=== PATIENT | male | born 1945 | race Caucasian/White ===

== ENCOUNTER 2020-10-22 07:44 | Emergency (ER) | payer OTHER, MEDICARE ==
[2020-10-22] MEDS ORDERED: Lidocaine 1% with EPINEPHrine 1:100,000 20 ML MDV INFILT STA (07:50)
--- NOTE | 2020-10-22 07:55 | EDM.PDOC ---
ED HPI GENERAL MEDICAL PROBLEM - General Stated Complaint: HEAD INJURY Time Seen by Provider: 10/22/20 07:45 Source of Information: Reports: Patient History Limitations: Reports: No Limitations - History of Present Illness INITIAL COMMENTS - FREE TEXT/NARRATIVE: Pt comes to the emergency department today with complaints of a fall and laceration to his scalp. Just prior to arrival the patient was walking on the sidewalk when he slipped on the ice while he was at work shoveling snow. Fell backwards on the ice. Striking the back of his head and sustaining a laceration. He did not loose consciousness. No headache, visual acuity changes. No vertigo or dizziness. NO neck pain. No nausea no vomiting. He is able to ambulate without difficulty. No paraesthesias of his upper or lower extremities. No castro ge in functionality of his upper or lower extremities. He had no symptoms prior to the mechanical fall. No nausea no vomiting. No confusion or change in mentation. Unsure of when his last tetanus shot was. No COVID exposure no COVID symptoms. He is on a baby aspirin daily but no anti-coagulation medications. ED ROS GENERAL - Review of Systems Review Of Systems: Comprehensive ROS is negative, except as noted in HPI. ED EXAM, HEAD INJURY - Physical Exam Exam: See Below Exam Limited By: No Limitations General Appearance: Alert, WD/WN, No Apparent Distress Head: Normocephalic, Scalp Lacerations (On the occiput there is a small area about the size of a quarter of a small hematoma. No crepitus or bony deformity. There is also two vertical superficial lacerations both about 1.2 cm in length paralell to each other on the scalp that are not bleeding. The rest of the scalp is atraumatic. ) Nexus Criteria: No: Posterior, Midline Cervical Tenderness, Evidence of In toxication, Altered Level of Consciousness, Focal Neurological Deficit, Painful Distraction Injuries Eyes: Bilateral Eye: EOMI, Normal Inspection, PERRL (2) Ears: Normal External Exam, Normal Canal, Hearing Grossly Normal, Normal TMs Nose: Normal Inspection, Normal Mucousa, No Blood Throat/Mouth: Normal Inspection, Normal Lips, Normal Teeth, Normal Gums, Normal Oropharynx, Normal Voice, No Airway Compromise Neck: Non-Tender, Full Range of Motion, Normal Alignment, Normal Inspection Respiratory: No Respiratory Distress Cardiovascular: Normal Peripheral Pulses, Regular Rate, Rhythm Back Exam: Normal Inspection, Full Range of Motion. No: Paraspinal Tenderness, Vertebral Tenderness Extremities: Normal Inspection, Normal Range of Motion, Non-Tender, No Pedal Edema, Normal Capillary Refill Neurologic: sand cutter II-XII nml As Tested, No Motor/Sensory Deficits, Alert, Normal Mood/Affect, Oriented x 3 - Jennifer Coma Score Best Eye Response ([place]): (4) Open Spontaneously Best Verbal Response ([place]): (5) Oriented Best Motor Response ([place]): (6) Obeys Commands ED LACERATION/WOUND & MATT PROC - Laceration/Wound Repair Posterior Head Lac/wound length in cm: 1.5 (x2) Appearance: Superficial, Stellate, Clean Distal NVT: Neuro & Vascular Intact Anesthetic Type: Local Local Anesthesia - Lidocaine (Xylocaine): 1% with EPI Skin Prep: Chlorhexidine (Hibiciens), Saline Exploration/Debridement/Repair: Wound Explored, In a Bloodless Field Closed with: [place] # of Sutures: 7 (5 on the right lac and 2 on the left. ) Tetanus Status Addressed: Yes Course - Orders/Labs/Meds Meds: Medications Discontinued Medications Generic Name Dose Route Start Last Admin Trade Name Gurpreet PRN Reason Stop Dose Admin Lidocaine/Epinephrine 20 ml 10/22/20 07:50 Xylocaine 1% With Epinephrine 1:100,000 INFILT 10/22/20 07:51 ONETIME STA - Re-Assessments/Exams Free Text/Narrative Re-Assessment/Exam: 10/22/20 08:07 The wound was cleanse and repaired as per the procedure note. It is more stellate in nature than initially thought. But was able to be easily closed with kaitlynn. His did not Loose consciousness and is not on an anticoagulant. No headache or other neurological complaints or symptoms. No CT at this time. Although if he develops any neurological symptoms especially headache nausea or vomiting he should recheck immediately in the ED. He is understanding of this and his questions answered. Departure - Departure Time of Disposition: 08:09 Disposition: Home, Self-Care 01 Clinical Impression: Scalp hematoma Qualifiers: Encounter type: initial encounter Qualified Code(s): S00.03XA - Contusion of scalp, initial encounter Laceration of scalp Qualifiers: Encounter type: initial encounter Qualified Code(s): S01.01XA - Laceration without foreign body of scalp, initial encounter - Discharge Information Instructions: Facial or Scalp Contusion, [id number], Sutures, [place], or Adhesive Wound Closure, [id number], How to Use Cold Therapy Additional Instructions: Ice to the scalp to help with swelling and pain. Enfield out in 5 days in the clinic. Okay to shower. Running water over is fine no soaking in the water. Wash twice daily with soap and water. Bacitracin until healed. Watch for signs of infection. Return to the ED if new or worsening symptoms especially any nausea vomiting headache confusion or other neurological changes or concerns. Follow up in the clinic in 5 days for staple removal.
[2020-10-22] MEDS ORDERED: Diphtheria,Pertussis(Acell),Tetanus Vaccine 0.5 ML Syringe IM ONE (08:07)
== END 2020-10-22 08:34 | disposition home or self-care (01) ==
LOC: VM.ED 07:44
DX: S01.01XA Laceration without foreign body of scalp, initial encounter (principal); Z23 Encounter for immunization; W00.0XXA Fall on same level due to ice and snow, initial encounter; Y99.0 Civilian activity done for income or pay
CPT/HCPCS: 12001; 12002; 90471; 90715; 99282-25; 99283

== ENCOUNTER 2023-10-31 00:15 | Emergency (ER) | payer MEDICARE ==
[2023-10-31] MEDS ORDERED: Ketorolac 30 MG/ML SDV IM ONE (00:32)
[2023-10-31] MEDS ORDERED: Take Home: traMADol 50 MG, 4 Tab Pack PO ONE (00:53)
== END 2023-10-31 01:20 | disposition home or self-care (01) ==
LOC: VM.ED 00:15
DX: M25.552 Pain in left hip (principal); I25.10 Atherosclerotic heart disease of native coronary artery without angina pectoris; I13.0 Hypertensive heart and chronic kidney disease with heart failure and stage 1 through stage 4 chronic kidney disease, or unspecified chronic kidney disease; E11.22 Type 2 diabetes mellitus with diabetic chronic kidney disease; N18.32 Chronic kidney disease, stage 3b; I50.9 Heart failure, unspecified; E66.9 Obesity, unspecified; Z88.8 Allergy status to other drugs, medicaments and biological substances; Z79.899 Other long term (current) drug therapy; Z88.7 Allergy status to serum and vaccine; Z79.82 Long term (current) use of aspirin
CPT/HCPCS: 96372; 99283; A9270-GY; J1885

== ENCOUNTER 2025-03-27 16:06 | Inpatient (IN) | payer MEDICARE ==
[2025-03-27 16:34] LABS: BASOPHILS ABSOLUTE AUTO 0.0 x10^3/uL (0.0-0.2); BASOPHILS PERCENT AUTO 0.3 % (0.2-1.2); EOSINOPHILS ABSOLUTE AUTO 0.1 x10^3/uL (0.0-0.5); EOSINOPHILS PERCENT AUTO 1.5 % (0.0-4.0); IMMATURE GRAN ABSOLUTE AUTO 0.01 x10^3/uL (0.00-0.07); IMMATURE GRAN PERCENT AUTO 0.10 % (0.00-0.43); LYMPHOCYTES ABSOLUTE AUTO 0.7 x10^3/uL (1.0-4.8); LYMPHOCYTES PERCENT AUTO 10.4 % (25.0-50.0); MONOCYTES ABSOLUTE AUTO 0.5 x10^3/uL (0.0-0.8); MONOCYTES PERCENT AUTO 7.3 % (2.0-11.0); NEUTROPHILS ABSOLUTE AUTO 5.7 x10^3/uL (1.8-7.7); NEUTROPHILS PERCENT AUTO 80.4 % (50.0-80.0); PLATELET COUNT,PLT 204 x10^3/uL (130-400); RED BLOOD CELL COUNT 3.72 x10^6/uL (4.5-6.0); WHITE BLOOD CELL COUNT,WBC 7.1 x10^3/uL (4.0-10.0)
[2025-03-27 16:57] LABS: A/G RATIO 0.91; ALANINE AMINOTRANSFERASE,ALT 7 U/L (16-63); ASPARTATE AMNIOTRANSFERASE,AST 12 U/L (15-37); BILIRUBIN TOTAL 0.5 mg/dL (0.2-1.0); BLOOD UREA NITROGEN,BUN 47 mg/dL (7-18); CARBON DIOXIDE,CO2 28 mmol/L (21-32); CHLORIDE,CL 106 mmol/L (98-107); CREATININE 2.2 mg/dL (0.70-1.30); ESTIMATED GFR 30 mL/min (>=60); GLUCOSE RANDOM 161 mg/dL (70-99); POTASSIUM,K 4.5 mmol/L (3.5-5.1); PRO B-TYPE NATRIUR PEPT,BNPPRO 9599 pg/mL (<=450); PROTEIN TOTAL,TP 6.5 g/dL (6.4-8.2); SODIUM,NA 142 mmol/L (136-145)
[2025-03-27] MEDS ORDERED: Non-Formulary Medication 1 Each (Epinephrine [Epinephrine] 0.3 MG/0.3 ML Auto.Injct) IM PRN (18:50)
[2025-03-27] MEDS ORDERED: Nitroglycerin 0.4 MG Tab.SL SL PRN (18:50)
[2025-03-27] MEDS: Heparin Sodium 5,000 Units/ML Vial SUBCUT SCH (19:13)
[2025-03-27] MEDS: Furosemide 40 MG/4 ML VIAL IV SCH (19:35)
[2025-03-27] MEDS: Arformoterol 15 MCG/2 ML Neb Soln NEB SCH (21:08)
[2025-03-27] MEDS: Budesonide 0.5 MG/2 ML Neb Susp NEB SCH (21:08)
[2025-03-28 06:55] LABS: BASOPHILS ABSOLUTE AUTO 0.0 x10^3/uL (0.0-0.2); BASOPHILS PERCENT AUTO 0.4 % (0.2-1.2); EOSINOPHILS ABSOLUTE AUTO 0.2 x10^3/uL (0.0-0.5); EOSINOPHILS PERCENT AUTO 2.4 % (0.0-4.0); IMMATURE GRAN ABSOLUTE AUTO 0.01 x10^3/uL (0.00-0.07); IMMATURE GRAN PERCENT AUTO 0.10 % (0.00-0.43); LYMPHOCYTES ABSOLUTE AUTO 1.1 x10^3/uL (1.0-4.8); LYMPHOCYTES PERCENT AUTO 16.6 % (25.0-50.0); MONOCYTES ABSOLUTE AUTO 0.7 x10^3/uL (0.0-0.8); MONOCYTES PERCENT AUTO 10.9 % (2.0-11.0); NEUTROPHILS ABSOLUTE AUTO 4.7 x10^3/uL (1.8-7.7); NEUTROPHILS PERCENT AUTO 69.6 % (50.0-80.0); PLATELET COUNT,PLT 219 x10^3/uL (130-400); RED BLOOD CELL COUNT 3.85 x10^6/uL (4.5-6.0); WHITE BLOOD CELL COUNT,WBC 6.7 x10^3/uL (4.0-10.0)
[2025-03-28 07:00] LABS: BLOOD UREA NITROGEN,BUN 43.0 mg/dL (7-18); CARBON DIOXIDE,CO2 31.0 mmol/L (21-32); CHLORIDE,CL 105.0 mmol/L (98-107); CREATININE 2.0 mg/dL (0.70-1.30); EST CRCL DRUG DOSING (CG) 31.38 mL/min; GLUCOSE RANDOM 96.0 mg/dL (70-99); POTASSIUM,K 4.3 mmol/L (3.5-5.1); SODIUM,NA 144.0 mmol/L (136-145)
[2025-03-28 07:02] LABS: ESTIMATED GFR 33.0 mL/min (>=60)
[2025-03-28] MEDS ORDERED: EPINEPHrine 1 MG/ML SDV IM PRN (08:27)
[2025-03-28] MEDS ORDERED: Non-Formulary Medication 1 Each (Atorvastatin [Lipitor] 20 MG Tablet) PO SCH (09:00)
[2025-03-28] MEDS: Cholecalciferol (Vitamin D3) 25 MCG Tab PO SCH (09:01)
[2025-03-29 06:48] LABS: BASOPHILS ABSOLUTE AUTO 0.0 x10^3/uL (0.0-0.2); BASOPHILS PERCENT AUTO 0.4 % (0.2-1.2); EOSINOPHILS ABSOLUTE AUTO 0.0 x10^3/uL (0.0-0.5); EOSINOPHILS PERCENT AUTO 0.0 % (0.0-4.0); IMMATURE GRAN ABSOLUTE AUTO 0.01 x10^3/uL (0.00-0.07); IMMATURE GRAN PERCENT AUTO 0.20 % (0.00-0.43); LYMPHOCYTES ABSOLUTE AUTO 0.5 x10^3/uL (1.0-4.8); LYMPHOCYTES PERCENT AUTO 10.6 % (25.0-50.0); MONOCYTES ABSOLUTE AUTO 0.3 x10^3/uL (0.0-0.8); MONOCYTES PERCENT AUTO 6.6 % (2.0-11.0); NEUTROPHILS ABSOLUTE AUTO 3.7 x10^3/uL (1.8-7.7); NEUTROPHILS PERCENT AUTO 82.2 % (50.0-80.0); PLATELET COUNT,PLT 178 x10^3/uL (130-400); RED BLOOD CELL COUNT 3.49 x10^6/uL (4.5-6.0)
[2025-03-29 06:58] LABS: WHITE BLOOD CELL COUNT,WBC 4.5 x10^3/uL (4.0-10.0)
[2025-03-29 07:17] LABS: BLOOD UREA NITROGEN,BUN 42.0 mg/dL (7-18); CARBON DIOXIDE,CO2 31.0 mmol/L (21-32); CHLORIDE,CL 103.0 mmol/L (98-107); CREATININE 2.0 mg/dL (0.70-1.30); EST CRCL DRUG DOSING (CG) 31.38 mL/min; GLUCOSE RANDOM 136.0 mg/dL (70-99); POTASSIUM,K 4.0 mmol/L (3.5-5.1); PRO B-TYPE NATRIUR PEPT,BNPPRO 9019.0 pg/mL (<=450); SODIUM,NA 141.0 mmol/L (136-145)
[2025-03-29 07:20] LABS: ESTIMATED GFR 33.0 mL/min (>=60)
[2025-03-29] MEDS: methylPREDNISolone Sodium Succinate 125 MG/2 ML SDV IVPUSH SCH (08:46)
[2025-03-29] MEDS: Furosemide 40 MG/4 ML VIAL IV ONE ×2 (10:55→22:32)
[2025-03-30] MEDS: methylPREDNISolone Sodium Succinate 125 MG/2 ML SDV IVPUSH SCH ×2 (00:01→20:21)
[2025-03-30 07:05] LABS: BASOPHILS ABSOLUTE AUTO 0.0 x10^3/uL (0.0-0.2); BASOPHILS PERCENT AUTO 0.2 % (0.2-1.2); EOSINOPHILS ABSOLUTE AUTO 0.0 x10^3/uL (0.0-0.5); EOSINOPHILS PERCENT AUTO 0.0 % (0.0-4.0); IMMATURE GRAN ABSOLUTE AUTO 0.01 x10^3/uL (0.00-0.07); IMMATURE GRAN PERCENT AUTO 0.20 % (0.00-0.43); LYMPHOCYTES ABSOLUTE AUTO 0.3 x10^3/uL (1.0-4.8); LYMPHOCYTES PERCENT AUTO 5.0 % (25.0-50.0); MONOCYTES ABSOLUTE AUTO 0.1 x10^3/uL (0.0-0.8); MONOCYTES PERCENT AUTO 1.6 % (2.0-11.0); NEUTROPHILS ABSOLUTE AUTO 6.0 x10^3/uL (1.8-7.7); NEUTROPHILS PERCENT AUTO 93.0 % (50.0-80.0); PLATELET COUNT,PLT 191 x10^3/uL (130-400); RED BLOOD CELL COUNT 3.46 x10^6/uL (4.5-6.0); WHITE BLOOD CELL COUNT,WBC 6.4 x10^3/uL (4.0-10.0)
[2025-03-30 07:21] LABS: A/G RATIO 0.94; ALANINE AMINOTRANSFERASE,ALT 10.0 U/L (16-63); ASPARTATE AMNIOTRANSFERASE,AST 10.0 U/L (15-37); BILIRUBIN TOTAL 0.4 mg/dL (0.2-1.0); BLOOD UREA NITROGEN,BUN 49.0 mg/dL (7-18); CARBON DIOXIDE,CO2 30.0 mmol/L (21-32); CHLORIDE,CL 102.0 mmol/L (98-107); CREATININE 2.0 mg/dL (0.70-1.30); EST CRCL DRUG DOSING (CG) 31.38 mL/min; GLUCOSE RANDOM 185.0 mg/dL (70-99); POTASSIUM,K 4.2 mmol/L (3.5-5.1); PRO B-TYPE NATRIUR PEPT,BNPPRO 11513.0 pg/mL (<=450); PROTEIN TOTAL,TP 6.4 g/dL (6.4-8.2); SODIUM,NA 141.0 mmol/L (136-145)
[2025-03-30 07:22] LABS: ESTIMATED GFR 33.0 mL/min (>=60)
[2025-03-30 08:42] LABS: BASE EXCESS ARTERIAL,POC 4 mmol/L ((-2)-3); HCO3 ARTERIAL,POC 29.7 mmol/L (21-28); O2 SATURATION ARTERIAL,POC 91.4 % (94-98); PCO2 ARTERIAL,POC 52 mmHg (35-48); PH ARTERIAL,POC 7.37 pH (7.35-7.45); PO2 ARTERIAL,POC 65 mmHg (83-108); TCO2 ARTERIAL,POC 28.5 mmol/L (22-29)
[2025-03-30] MEDS: Furosemide 40 MG/4 ML VIAL IV SCH ×2 (10:55→15:28)
[2025-03-30] MEDS: Furosemide 100 MG/10 ML SDV IV SCH (17:08)
[2025-03-31 07:54] LABS: BASOPHILS ABSOLUTE AUTO 0.0 x10^3/uL (0.0-0.2); BASOPHILS PERCENT AUTO 0.1 % (0.2-1.2); EOSINOPHILS ABSOLUTE AUTO 0.0 x10^3/uL (0.0-0.5); EOSINOPHILS PERCENT AUTO 0.0 % (0.0-4.0); IMMATURE GRAN ABSOLUTE AUTO 0.03 x10^3/uL (0.00-0.07); IMMATURE GRAN PERCENT AUTO 0.30 % (0.00-0.43); LYMPHOCYTES ABSOLUTE AUTO 0.3 x10^3/uL (1.0-4.8); LYMPHOCYTES PERCENT AUTO 3.0 % (25.0-50.0); MONOCYTES ABSOLUTE AUTO 0.3 x10^3/uL (0.0-0.8); MONOCYTES PERCENT AUTO 3.2 % (2.0-11.0); NEUTROPHILS ABSOLUTE AUTO 9.5 x10^3/uL (1.8-7.7); NEUTROPHILS PERCENT AUTO 93.4 % (50.0-80.0); PLATELET COUNT,PLT 185 x10^3/uL (130-400); RED BLOOD CELL COUNT 3.85 x10^6/uL (4.5-6.0)
[2025-03-31 08:06] LABS: WHITE BLOOD CELL COUNT,WBC 10.2 x10^3/uL (4.0-10.0)
[2025-03-31 08:19] LABS: A/G RATIO 1.00; ALANINE AMINOTRANSFERASE,ALT 10 U/L (16-63); ASPARTATE AMNIOTRANSFERASE,AST 10 U/L (15-37); BILIRUBIN TOTAL 0.4 mg/dL (0.2-1.0); BLOOD UREA NITROGEN,BUN 63 mg/dL (7-18); CARBON DIOXIDE,CO2 32 mmol/L (21-32); CHLORIDE,CL 101 mmol/L (98-107); CREATININE 2.1 mg/dL (0.70-1.30); EST CRCL DRUG DOSING (CG) 29.88 mL/min; GLUCOSE RANDOM 216 mg/dL (70-99); POTASSIUM,K 3.6 mmol/L (3.5-5.1); PRO B-TYPE NATRIUR PEPT,BNPPRO 11947 pg/mL (<=450); PROTEIN TOTAL,TP 6.2 g/dL (6.4-8.2); SODIUM,NA 140 mmol/L (136-145)
[2025-03-31 08:25] LABS: ESTIMATED GFR 31 mL/min (>=60)
[2025-03-31] MEDS: Bumetanide 2.5 MG/10 ML MDV IVPUSH ONE ×2 (09:58→21:31)
[2025-03-31] MEDS: methylPREDNISolone Sodium Succinate 40 MG/1 ML SDV IVPUSH SCH (09:58)
[2025-03-31] MEDS: Potassium Chloride 10 MEQ Tab.ER PO SCH (18:04)
[2025-04-01 08:19] LABS: PLATELET COUNT,PLT 168.0 x10^3/uL (130-400); RED BLOOD CELL COUNT 3.71 x10^6/uL (4.5-6.0); WHITE BLOOD CELL COUNT,WBC 8.3 x10^3/uL (4.0-10.0)
[2025-04-01 08:39] LABS: A/G RATIO 1.03; ALANINE AMINOTRANSFERASE,ALT 15.0 U/L (16-63); ASPARTATE AMNIOTRANSFERASE,AST 11.0 U/L (15-37); BILIRUBIN TOTAL 0.4 mg/dL (0.2-1.0); CARBON DIOXIDE,CO2 33.0 mmol/L (21-32); CHLORIDE,CL 101.0 mmol/L (98-107); CREATININE 2.0 mg/dL (0.70-1.30); EST CRCL DRUG DOSING (CG) 31.38 mL/min; GLUCOSE RANDOM 265.0 mg/dL (70-99); POTASSIUM,K 4.1 mmol/L (3.5-5.1); PROTEIN TOTAL,TP 5.9 g/dL (6.4-8.2); SODIUM,NA 140.0 mmol/L (136-145)
[2025-04-01 08:40] LABS: BLOOD UREA NITROGEN,BUN 75.0 mg/dL (7-18); ESTIMATED GFR 33.0 mL/min (>=60)
[2025-04-01] MEDS: Bumetanide 2.5 MG/10 ML MDV IVPUSH SCH (08:42)
[2025-04-01 14:43] LABS: BASE EXCESS ARTERIAL,POC 4 mmol/L ((-2)-3); HCO3 ARTERIAL,POC 29.0 mmol/L (21-28); O2 SATURATION ARTERIAL,POC 84.8 % (94-98); PCO2 ARTERIAL,POC 46 mmHg (35-48); PH ARTERIAL,POC 7.40 pH (7.35-7.45); TCO2 ARTERIAL,POC 27.7 mmol/L (22-29)
[2025-04-01 14:45] LABS: PO2 ARTERIAL,POC 50 mmHg (83-108)
[2025-04-01] MEDS: Lidocaine 2% HCl 11 ML Jelly Filled Syringe MUCMEM ONE (14:52)
[2025-04-01] MEDS ORDERED: 50% Dextrose in Water 50 ML Syringe IVPUSH PRN (20:43)
[2025-04-01] MEDS: Insulin Regular, Human 100 Units/ML 10 ML Vial SUBCUT SCH (21:27)
[2025-04-02 06:46] LABS: PLATELET COUNT,PLT 164.0 x10^3/uL (130-400); RED BLOOD CELL COUNT 3.94 x10^6/uL (4.5-6.0); WHITE BLOOD CELL COUNT,WBC 8.2 x10^3/uL (4.0-10.0)
[2025-04-02 07:06] LABS: A/G RATIO 1.07; ALANINE AMINOTRANSFERASE,ALT 23.0 U/L (16-63); ASPARTATE AMNIOTRANSFERASE,AST 13.0 U/L (15-37); BILIRUBIN TOTAL 0.5 mg/dL (0.2-1.0); CARBON DIOXIDE,CO2 36.0 mmol/L (21-32); CHLORIDE,CL 102.0 mmol/L (98-107); CREATININE 2.0 mg/dL (0.70-1.30); EST CRCL DRUG DOSING (CG) 31.38 mL/min; ESTIMATED GFR 33.0 mL/min (>=60); GLUCOSE RANDOM 279.0 mg/dL (70-99); POTASSIUM,K 4.0 mmol/L (3.5-5.1); PROTEIN TOTAL,TP 6.0 g/dL (6.4-8.2); SODIUM,NA 142.0 mmol/L (136-145)
[2025-04-02 07:07] LABS: BLOOD UREA NITROGEN,BUN 77.0 mg/dL (7-18)
[2025-04-02] MEDS: Bumetanide 2.5 MG/10 ML MDV IVPUSH SCH (08:48)
[2025-04-03 06:57] LABS: BASOPHILS ABSOLUTE AUTO 0.0 x10^3/uL (0.0-0.2); BASOPHILS PERCENT AUTO 0.1 % (0.2-1.2); EOSINOPHILS ABSOLUTE AUTO 0.0 x10^3/uL (0.0-0.5); EOSINOPHILS PERCENT AUTO 0.0 % (0.0-4.0); IMMATURE GRAN ABSOLUTE AUTO 0.04 x10^3/uL (0.00-0.07); IMMATURE GRAN PERCENT AUTO 0.50 % (0.00-0.43); LYMPHOCYTES ABSOLUTE AUTO 0.2 x10^3/uL (1.0-4.8); MONOCYTES ABSOLUTE AUTO 0.3 x10^3/uL (0.0-0.8); MONOCYTES PERCENT AUTO 3.7 % (2.0-11.0); NEUTROPHILS ABSOLUTE AUTO 7.3 x10^3/uL (1.8-7.7); NEUTROPHILS PERCENT AUTO 92.9 % (50.0-80.0); PLATELET COUNT,PLT 150 x10^3/uL (130-400); RED BLOOD CELL COUNT 3.98 x10^6/uL (4.5-6.0); WHITE BLOOD CELL COUNT,WBC 7.8 x10^3/uL (4.0-10.0)
[2025-04-03 07:11] LABS: LYMPHOCYTES PERCENT AUTO 2.8 % (25.0-50.0)
[2025-04-03 07:24] LABS: A/G RATIO 1.15; ALANINE AMINOTRANSFERASE,ALT 29.0 U/L (16-63); ASPARTATE AMNIOTRANSFERASE,AST 17.0 U/L (15-37); BILIRUBIN TOTAL 0.6 mg/dL (0.2-1.0); CARBON DIOXIDE,CO2 35.0 mmol/L (21-32); CHLORIDE,CL 100.0 mmol/L (98-107); CREATININE 1.9 mg/dL (0.70-1.30); EST CRCL DRUG DOSING (CG) 33.03 mL/min; GLUCOSE RANDOM 236.0 mg/dL (70-99); POTASSIUM,K 4.3 mmol/L (3.5-5.1); PRO B-TYPE NATRIUR PEPT,BNPPRO 9439.0 pg/mL (<=450); PROTEIN TOTAL,TP 5.8 g/dL (6.4-8.2); SODIUM,NA 141.0 mmol/L (136-145)
[2025-04-03 07:25] LABS: ESTIMATED GFR 35.0 mL/min (>=60)
[2025-04-03 07:26] LABS: BLOOD UREA NITROGEN,BUN 82.0 mg/dL (7-18)
[2025-04-03] MEDS: methylPREDNISolone Sodium Succinate 40 MG/1 ML SDV IVPUSH SCH (08:57)
== END 2025-04-03 17:15 | disposition short-term general hospital (02) | DRG 291 ==
LOC: VM.ED 16:06 → VM.MS 17:21
PROVIDERS: ADMIT Internal Medicine; ATTEND Family Medicine
PROC: 0T9B70Z Drainage of Bladder with Drainage Device, Via Natural or Artificial Opening (ICD-10-PCS; principal; 2025-03-27)
PROC: 5A09357 Assistance with Respiratory Ventilation, Less than 24 Consecutive Hours, Continuous Positive Airway Pressure (ICD-10-PCS; 2025-03-29)
PROC: 4A133R1 Monitoring of Arterial Saturation, Peripheral, Percutaneous Approach (ICD-10-PCS; 2025-03-30)
PROC: 30233N1 Transfusion of Nonautologous Red Blood Cells into Peripheral Vein, Percutaneous Approach (ICD-10-PCS; 2025-03-30)
PROC: 5A0935A Assistance with Respiratory Ventilation, Less than 24 Consecutive Hours, High Flow/Velocity Cannula (ICD-10-PCS; 2025-04-02)
DX: I13.0 Hypertensive heart and chronic kidney disease with heart failure and stage 1 through stage 4 chronic kidney disease, or unspecified chronic kidney disease (principal); I50.33 Acute on chronic diastolic (congestive) heart failure; J96.21 Acute and chronic respiratory failure with hypoxia; E85.81 Light chain (AL) amyloidosis; N17.9 Acute kidney failure, unspecified; J44.1 Chronic obstructive pulmonary disease with (acute) exacerbation; J44.0 Chronic obstructive pulmonary disease with (acute) lower respiratory infection; K92.2 Gastrointestinal hemorrhage, unspecified; J20.9 Acute bronchitis, unspecified; I25.10 Atherosclerotic heart disease of native coronary artery without angina pectoris; I50.9 Heart failure, unspecified; E78.00 Pure hypercholesterolemia, unspecified; E11.51 Type 2 diabetes mellitus with diabetic peripheral angiopathy without gangrene; E11.22 Type 2 diabetes mellitus with diabetic chronic kidney disease; E66.9 Obesity, unspecified; H65.23 Chronic serous otitis media, bilateral; J43.9 Emphysema, unspecified; G47.33 Obstructive sleep apnea (adult) (pediatric); D63.8 Anemia in other chronic diseases classified elsewhere; G31.84 Mild cognitive impairment of uncertain or unknown etiology; D50.0 Iron deficiency anemia secondary to blood loss (chronic); N18.32 Chronic kidney disease, stage 3b; F17.210 Nicotine dependence, cigarettes, uncomplicated; H91.90 Unspecified hearing loss, unspecified ear; K63.5 Polyp of colon; R33.9 Retention of urine, unspecified; R91.8 Other nonspecific abnormal finding of lung field; Z88.8 Allergy status to other drugs, medicaments and biological substances; Z68.26 Body mass index [BMI] 26.0-26.9, adult; Z79.82 Long term (current) use of aspirin; Z79.899 Other long term (current) drug therapy; Z90.49 Acquired absence of other specified parts of digestive tract; Z98.890 Other specified postprocedural states; Z95.1 Presence of aortocoronary bypass graft; Z95.5 Presence of coronary angioplasty implant and graft; Z95.810 Presence of automatic (implantable) cardiac defibrillator; Z88.7 Allergy status to serum and vaccine; Z79.52 Long term (current) use of systemic steroids
CPT/HCPCS: 36415; 36430; 36600; 51702; 51798; 71045; 71046; 71250; 80048; 80053; 82274; 82728; 82803; 82947; 83735; 83880; 84484; 85014; 85018; 85025; 85027; 86140; 86850; 86900; 86901; 86920; 86922; 87426-QW; 93005; 93010; 94640; 94668; 94760; 97110-GP; 97116-GP; 97161-GP; 97165-GO; 97530-GP; 97535-GO; 99284; 99285; A9270-GY; J1644; J1938; J1939; J2919; J3490; J7512; P9016; Q3014